=== PATIENT | male | born 1970 | race Caucasian/White ===

== ENCOUNTER 2018-01-05 22:05 | Emergency (ER) | payer OTHER ==
[2018-01-05] MEDS ORDERED: Bacitracin Oint 1 GM U/D Packet TOP ONE (22:34)
--- NOTE | 2018-01-05 23:02 | EDM.PDOC ---
ED HPI GENERAL MEDICAL PROBLEM - General Chief Complaint: Skin Complaint Stated Complaint: FISHHOOK Time Seen by Provider: 01/05/18 22:57 Source of Information: Reports: Patient, Family (girlfriend) History Limitations: Reports: No Limitations - History of Present Illness INITIAL COMMENTS - FREE TEXT/NARRATIVE: Was fishing today and got a fish hook caught in his left thumb. Tetanus status current. Onset: Today Onset Date: 01/05/18 Location: Reports: Upper Extremity, Left Severity: Mild Improves with: Reports: None Worsens with: Reports: Movement Associated Symptoms: Reports: No Other Symptoms - Related Data Allergies Allergy/AdvReac Type Severity Reaction Status Date / Time Iodine and Iodide Containing Allergy Hives Verified 01/05/18 22:22 Produc Home Meds: Home Meds Aspirin 01/05/18 [History] Cetirizine [[id number]] 01/05/18 [History] Social & Family History - Tobacco Use Smoking Status *Q: Never Smoker ED ROS GENERAL - Review of Systems Review Of Systems: See Below Constitutional: Reports: No Symptoms HEENT: Reports: No Symptoms Respiratory: Reports: No Symptoms Cardiovascular: Reports: No Symptoms GI/Abdominal: Reports: No Symptoms Skin: Reports: Other (fishing lure to left thumb) Neurological: Reports: No Symptoms ED EXAM, SKIN/RASH Exam: See Below Exam Limited By: No Limitations General Appearance: Alert, WD/WN, No Apparent Distress Respiratory/Chest: No Respiratory Distress, Lungs Clear, Normal Breath Sounds, No Accessory Muscle Use, Chest Non-Tender Cardiovascular: Normal Peripheral Pulses, Regular Rate, Rhythm, No Edema, No Gallop, No JVD, No Murmur, No Rub Skin: Other (lure with kuldip x 1 to left thumb) Location, Skin: Upper Extremity, Left ED SKIN PROCEDURES - Foreign Body Removal Indication:: fishing lure Consent Obtained:: Patient Performing Doctor:: Brady Clay Foreign Body Other Location Comment:: left thumb Anesthesia Type: Local (3cc's lidocaine 1%) Findings:: Lure removed without difficulty. Dressing placed. Pt tolerated well. Complications:: No Course - Vital Signs Last Recorded V/S: Last Vital Signs Temp 96.8 F 01/05/18 22:27 Pulse 89 01/05/18 22:27 Resp 14 01/05/18 22:27 BP 144/99 H 01/05/18 22:27 Pulse Ox 98 01/05/18 22:27 - Orders/Labs/Meds Meds: Medications Discontinued Medications Generic Name Dose Route Start Last Admin Trade Name Adams PRKelle Reason Stop Dose Admin Bacitracin 1 dose 01/05/18 22:34 01/05/18 22:55 Bacitracin Oint 1 Gm TOP 01/05/18 22:35 1 dose ONETIME ONE Administration Lidocaine HCl 5 ml 01/05/18 22:34 01/05/18 22:55 Xylocaine-Mpf 1% INJECT 01/05/18 22:35 5 ml ONETIME ONE Administration Departure - Departure Time of Disposition: 23:01 Disposition: Home, Self-Care 01 Condition: Good Clinical Impression: Fish hook injury of left thumb Qualifiers: Encounter type: initial encounter Qualified Code(s): S69.92XA - Unspecified injury of left wrist, hand and finger(s), initial encounter - Discharge Information *PRESCRIPTION DRUG MONITORING PROGRAM REVIEWED*: Not Applicable *COPY OF PRESCRIPTION DRUG MONITORING REPORT IN PATIENT LULÚ: Not Applicable Instructions: Contact Dermatitis, [id number] Referrals: PCP,None [Primary Care Provider] - Forms: ED Department Discharge Additional Instructions: Lure returned to patient. Pt to monitor for s/s of infection. Follow up as needed. - Problem List & Annotations (1) Fish hook injury of left thumb SNOMED Code(s): 900012884 Code(s): S69.92XA - UNSP INJURY OF LEFT WRIST, HAND AND FINGER(S), INIT ENCNTR Status: Acute Priority: Medium Current Visit: Yes Qualifiers: Encounter type: initial encounter Qualified Code(s): S69.92XA - Unspecified injury of left wrist, hand and finger(s), initial encounter
== END 2018-01-05 23:22 | disposition home or self-care (01) ==
LOC: JP.ED 22:05
DX: S60.352A Superficial foreign body of left thumb, initial encounter (principal); Z91.041 Radiographic dye allergy status; W45.8XXA Other foreign body or object entering through skin, initial encounter; Z79.82 Long term (current) use of aspirin
CPT/HCPCS: 99283